=== PATIENT | female | born 1990 | race American Indian/Alaskan Native ===

== ENCOUNTER 2017-05-08 17:55 | Outpatient (CLI) | payer OTHER ==
[2017-05-08] MEDS ORDERED: LACTATED RINGERS 500 ML IV ONE (18:07)
[2017-05-08 19:13] LABS: Bilirubin,Urine NEG (Negative); Blood,Urine NEG (Negative); Ketones,Urine 20 mg/dL (Negative); Leukocyte Esterase,Urine SM (Negative); Mucus,Urine 3+ /HPF; Nitrite,Urine NEG (Negative); Protein,Urine <15 mg/dL mg/dL (Negative); Urobilinogen,Urine < 2.0 mg/dL (<2.0)
[2017-05-08] MEDS ORDERED: ROCEPHIN IM ONE (21:00)
[2017-05-08] MEDS ORDERED: XYLOCAINE 1% MPF 5 mL INFILTRATI ONE (21:00)
== END 2017-05-08 21:25 | disposition home or self-care (01) ==
LOC: TRG 17:55
PROVIDERS: ATTEND Obstetrics & Gynecology
DX: O47.02 False labor before 37 completed weeks of gestation, second trimester (principal); Z3A.21 21 weeks gestation of pregnancy
CPT/HCPCS: 59025; 81001; 96372; J0696

== ENCOUNTER 2017-09-14 00:43 | Inpatient (IN) | payer MEDICAID ==
[2017-09-14] MEDS ORDERED: PITOCin/NS 20 UNIT/1000ML DRIP 20,000 MILLIUNITS/1,000 ML BAG IV ONE (00:55)
[2017-09-14] MEDS ORDERED: PITOCin/NS 20 UNIT/1000ML DRIP 20 UNITS/1,000 ML BAG IV SCH (01:00)
[2017-09-14] MEDS ORDERED: XYLOCAINE 2% INFILTRATI ONE (01:09)
--- NOTE | 2017-09-14 01:31 | History and Physical Report ---
History of Present Illness Date of examination: 09/14/17 Date of admission: 09/14/17 00:50 Chief complaint: I'm in labor History of present illness: patient is a 27 year old who presents to L&D in active labor at 10cm with rom and meconium. records are not available for review at this time. Past History Past Medical History: no pertinent history Past Surgical History: no surgical history - Obstetrical History Expected Date of Delivery: 09/14/17 Actual Gestation: 40 Week(s) 0 Day(s) : 6 Para: 3 Number of Living Children: 3 Medications and Allergies Allergies Allergy/AdvReac Type Severity Reaction Status Date / Time No Known Allergies Allergy Verified 08/06/15 23:50 Home Medications Medication Instructions Recorded Confirmed Last Taken Type HYDROcodone/APAP 5-325 [[place] 1 each PO Q6HR PRN #20 tablet 12/28/15 Unknown Rx 5/325] Ibuprofen [Motrin] 800 mg PO Q8HR PRN #60 tablet 12/28/15 Unknown Rx Review of Systems All systems: negative Genitourinary: contractions - Vital Signs Vital signs: Vital Signs Pulse BP 96 H 130/69 09/14/17 01:27 09/14/17 01:27 Temp Pulse Resp BP Pulse Ox 96 H 130/69 09/14/17 01:27 09/14/17 01:27 - Physical Exam Breasts: Cardiovascular: Regular rate, Normal S1, Normal S2 Lungs: Positive: Clear to auscultation, Normal air movement Abdomen: Positive: normal appearance, soft, normal bowel sounds. Negative: distention, tenderness Genitourinary (Female): Positive: normal external genitalia Vulva: both: normal Vagina: Positive: normal moisture. Negative: discharge Cervix: Negative: lesion, discharge Uterus: Positive: normal size, normal contour Adnexa: both: normal Anus/Rectum: Positive: normal perianal skin, heme negative. Negative: rectal mass, hemorrhoids Extremities: Deep Tendon Reflex Grade: Normal +2 - Obstetrical Cervical Dilatation: 10 Cervical Effacement Percentage: 100 station: +1 Uterine Contraction Pattern: Regular Uterine Tone Measurement Phase: Contraction Uterine Contraction Intensity: Moderate Results All other labs normal. Assessment and Plan IUP at 40 weeks in active labor. Anticipate .
--- NOTE | 2017-09-14 01:35 | Procedure Note ---
OB Delivery Note - Delivery Date of Delivery: 09/14/17 Surgeon: RG SHELDON Estimated blood loss: 200cc - Vaginal Delivery presentation: vertex Delivery position: OA Intrapartum events: meconium, precipitous labor- <3hr Delivery induction: none Delivery monitor: external FHT, external uterine Route of delivery: Delivery placenta: spontaneous Delivery cord: 3 umbilical vessels Delivery laceration: 1st degree Delivery repair: vicryl Anesthesia: epidural Delivery comments: Viable female delivered over intact perieum. No nuchal cord. Infant placed on maternal abdomen. Cord clamped and cut when done pulsing. Placenta delivered spontaneously and intact with 3vc. Weight 7 pounds 4 ounces 3300 grams. Apgars 8,9. Laceration repaired with 2.0 chromic. Excellent hemostasis.
[2017-09-14 03:05] LABS: Hematocrit 37.5 % (30.3-42.9); Hemoglobin 12.1 gm/dl (10.1-14.3); Mean Corpuscular HGB Conc 32 % (30-34); Mean Corpuscular Hemoglobin 27 pg (28-32); Mean Corpuscular Volume 85 fl (79-97); Platelet Count 247 K/mm3 (140-440); Red Cell Distribution Width 13.9 % (13.2-15.2)
[2017-09-14] MEDS ORDERED: ZOFRAN IV PRN (03:08)
[2017-09-14] MEDS ORDERED: MILK OF MAGNESIA PO PRN (03:08)
[2017-09-14] MEDS ORDERED: PHENERGAN PR PRN (03:08)
[2017-09-14] MEDS ORDERED: LANSINOH TP PRN ×2 (03:08)
[2017-09-14] MEDS ORDERED: TUCKS PAD TP PRN (03:08)
[2017-09-14] MEDS ORDERED: NORCO 5/325 PO PRN (03:08)
[2017-09-14] MEDS ORDERED: TYLENOL PO PRN (03:08)
[2017-09-14] MEDS ORDERED: PHENERGAN PO PRN (03:08)
[2017-09-14] MEDS ORDERED: BENADRYL PO PRN (03:08)
[2017-09-14] MEDS ORDERED: DULCOLAX PR PRN (03:08)
[2017-09-14] MEDS ORDERED: SODIUM CHLORIDE FLUSH SYRINGE 10 ML IV PRN (04:00)
[2017-09-14] MEDS: MOTRIN PO SCH ×3 (04:09→23:16)
[2017-09-14] MEDS: PRENATAL VITAMIN PO SCH (10:57)
[2017-09-14] MEDS: COLACE PO SCH ×2 (10:58→23:15)
[2017-09-14 14:58] LABS: Hematocrit 32.1 % (30.3-42.9); Hemoglobin 10.5 gm/dl (10.1-14.3)
[2017-09-15] MEDS: MOTRIN PO SCH ×2 (05:38→12:47)
[2017-09-15] MEDS ORDERED: BOOSTRIX IM ONE (06:00)
[2017-09-15] MEDS: PRENATAL VITAMIN PO SCH (12:47)
[2017-09-15] MEDS: COLACE PO SCH (12:47)
--- NOTE | 2017-09-15 14:13 | Progress Note ---
Assessment and Plan PPD 1 s/p . Doing well. Patient actually had prenatals in purse and wanted to go home today. Subjective - Subjective Date of service: 09/15/17 Interval history: patient is a 27 year old who presents to L&D in active labor at 10cm with rom and meconium. records are not available for review at this time. Patient reports: appetite normal, voiding normally, pain well controlled, ambulating normally : doing well Objective - Vital Signs Latest vital signs: Vital Signs Temp Pulse Resp BP BP Pulse Ox 09/15/17 07:24 98.6 F 79 18 121/80 98 09/15/17 01:46 98.4 F 77 20 103/69 96 09/14/17 17:00 98.8 F 90 18 121/76 Intake and Output 09/14/17 09/15/17 09/15/17 22:59 06:59 14:59 Intake Total 560 200 Balance 560 200 Intake: Oral 560 200 Other: Total, Intake Amount 200 200 # Voids Void 1 2 1 - Exam Cardiovascular: Present: Regular rate, Normal S1, Normal S2 Lungs: Present: Clear to auscultation, Normal air movement Abdomen: Present: normal appearance, soft Extremities: Present: normal Incision: Present: normal, dry, intact
--- NOTE | 2017-09-15 14:15 | Discharge Summary ---
Providers - Providers Date of Admission: 09/14/17 00:50 Date of discharge: 09/15/17 Attending physician: DAILY ORTEGA Primary care physician: DAILY ORTEGA Hospitalization Reason for admission: active labor Delivery: Other procedures: none Discharge diagnosis: IUP at term delivered baby: female Hospital course: unremarkable Condition at discharge: Good Disposition: DC-01 TO HOME OR SELFCARE Plan - Provider Discharge Summary Additional instructions: [] Smoking cessation referral if applicable(refer to patient education folder for contact #) [] Refer to [facility]'s [facility] Booklet Call your doctor immediately for: * Fever > 100.5 * Heavy vaginal bleeding ( >1 pad per hour) * Severe persistent headache * Shortness of breath * Reddened, hot, painful area to leg or breast * Drainage or odor from incision. * Keep incision clean and dry at all times and follow doctor's instructions regarding bathing/showering - Follow up plan Follow up: DAILY ORTEGA MD [Primary Care Provider] - 7 Days Forms: [facility] Discharge Summary
[2017-09-15 17:26] VITALS: BP 117/81
== END 2017-09-15 16:45 | disposition home or self-care (01) | DRG 775 ==
LOC: TRG 00:43 → LD 00:50 → TRG 00:50 → OB 03:02
PROVIDERS: ADMIT Obstetrics & Gynecology; ATTEND Obstetrics & Gynecology
PROC: 10E0XZZ Delivery of Products of Conception, External Approach (ICD-10-PCS; principal; 2017-09-14)
PROC: 0HQ9XZZ Repair Perineum Skin, External Approach (ICD-10-PCS; 2017-09-14)
PROC: 3E0R3BZ Introduction of Anesthetic Agent into Spinal Canal, Percutaneous Approach (ICD-10-PCS; 2017-09-14)
PROC: 00HU33Z Insertion of Infusion Device into Spinal Canal, Percutaneous Approach (ICD-10-PCS; 2017-09-14)
DX: O62.3 Precipitate labor (principal); O77.0 Labor and delivery complicated by meconium in amniotic fluid; O70.0 First degree perineal laceration during delivery; Z37.0 Single live birth; Z3A.40 40 weeks gestation of pregnancy; Z79.899 Other long term (current) drug therapy
CPT/HCPCS: 36415; 85014; 85018; 85027; 86592; 86706; 86762; 86850; 86900; 86901; 87806; 90715; A6250; J2590